=== PATIENT | male | born 1970 | race Caucasian/White ===

== ENCOUNTER 2021-12-24 07:45 | Emergency (ER) | payer SELFPAY ==
[~2021-12-24] VITALS: Wt 99.8 kg
[~2021-12-24 07:45] MED LIST: ANAPROX DS550 MG PO; CILOXAN 5 ML5 M1 OT; CILOXAN 5 ML5 ML OT; NKHM; NORFLEX100 MG PO; ZOFRAN ODT8 MG PO
[2021-12-24 08:26] LABS: BASO % 0.1 % (0.0-1.0); HEMATOCRIT 45.4 % (42.0-52.0); LYMPH # 0.8 10*3/uL (1.3-4.4); MEAN CELL VOLUME 86.8 fl (80.0-94.0); MEAN CORPUSCULAR HGB CONC 34.6 g/dl (33.0-37.0); MEAN PLATELET VOLUME 10.5 fl (9.6-12.3); MONO % 10.4 % (3.0-9.0); NEUT # 7.5 10*3/uL (2.3-7.9); NEUT % 79.8 % (47.0-73.0); PLATELET COUNT AUTOMATED 183 10*3/uL (130-400); RED BLOOD COUNT 5.23 10*6/uL (4.50-5.90); RED CELL DISTRI WIDTH 11.9 % (0-14.5); WHITE BLOOD COUNT 9.3 10*3/uL (4.8-10.8)
[2021-12-24 08:38] LABS: BUN 14 mg/dl (7-24); CHLORIDE 99 mmol/L (98-107); CREATININE 1.03 mg/dL (0.70-1.30); POTASSIUM 3.9 mmol/L (3.5-5.1); SODIUM 130 mmol/L (136-145)
[2021-12-24] MEDS ORDERED: PREDNISONE50 MG PO (10:06)
== END 2021-12-24 10:23 | disposition home or self-care (01) ==
LOC: ED 07:45
PROVIDERS: Internal Medicine
DX: B34.9 Viral infection, unspecified (principal); Z20.822 Contact with and (suspected) exposure to COVID-19; Z90.49 Acquired absence of other specified parts of digestive tract